=== PATIENT | male | born 1995 | race Caucasian/White ===

== ENCOUNTER 2016-10-30 09:07 | Emergency (ER) | payer BC ==
[~2016-10-30] VITALS: Ht 188 cm; Wt 83.9 kg
[2016-10-30 09:10] VITALS: TEMP 36.7; Ht 188 cm; Wt 83.9 kg
[2016-10-30 09:17] VITALS: O2SAT 95
--- NOTE | 2016-10-30 09:45 | EMERGENCY ROOM VISIT NOTE ---
History Report prepared by Levi: Saniya Vickers Under the Supervision of: Dr. Petros Brown M.D. First contact with patient: 09:33 Chief Complaint: CARDIAC ASSESSMENT Stated Complaint: HEART ATTACK, SOB, ANXIETY History of Present Illness The patient is a 21 year old male who presents to the Emergency Room for a cardiac assessment. The patient states, "I'm pretty sure that I experienced a heart attack this morning." He woke up at 7am and was feeling fine. He ate a piece of pizza and fell back to sleep with his computer on his chest. He woke up again at 8am with chest pain and shortness of breath. He states that his chest was very hot from his computer. He tried to check his pulse at his carotid , and states that he did not have a pulse. The patient ran outside to catch his breath. He states that on the drive to the ER his heart was racing. He describes his current pain as a pressure and tightness in his chest. He rates his discomfort as a 3/10 in severity. He has never experienced symptoms like this before. The patient denies back pain, abdominal pain, and extremity pain. He does not have any history of anxiety or panic attacks. Source of History: patient Onset: 1.5 hours [employer] Position: chest (cardiac) Symptom Intensity: 3/10 Quality: pressure, other (tightness) Timing: constant Associated Symptoms: + SOB, No abdominal pain, No back pain Note: Pt denies extremity pain. Review of Systems All systems have been listed, reviewed, and are negative other than those previously mentioned. Please see Additional Medical History Sheet. Past Medical & Surgical Medical Problems: (1) No significant active problems Family History Diabetes mellitus Heart disease Hypertension Social History Smoking Status: Unknown if Ever Smoked Alcohol Use: occasionally Marital Status: single Housing Status: lives with family Occupation Status: unemployed Current/Historical Medications Scheduled Amphetamine-Dextroamphetamine 20MG (Adderall Xr 20MG), 20 MG PO QAM Allergies Coded Allergies: No Known Allergies (Unverified , 10/30/16) Physical Exam Vital Signs Date Time Temp Pulse Resp B/P Pulse Ox O2 Delivery O2 Flow Rate FiO2 10/30/16 11:53 71 18 120/83 97 10/30/16 11:12 70 18 126/76 98 Room Air 10/30/16 09:39 100 Room Air 10/30/16 09:25 90 10/30/16 09:17 95 Room Air 10/30/16 09:10 36.7 104 20 133/75 100 Room Air Physical Exam GENERAL: Patient awake, alert, oriented x 3. Patient follows commands. Patient does not appear toxic. Patient is adequately hydrated and well- nourished. SKIN: No erythema, pallor, cyanosis or rash HEENT: Normal head, pupils equal, reactive to light and accommodation. Oral cavity and posterior pharynx appear normal. Neck: Without adenopathy, no neck vein distention. LUNGS: Clear to auscultation. No wheezes, no rales, no rhonchi. HEART: No murmurs. No gallops. No rubs ABDOMEN: No masses, no rebound, no hepatomegaly or splenomegaly. EXTREMITIES: No signs of trauma. No pedal or pretibial edema. No calf or thigh tenderness. NEUROLOGIC: Cranial nerves II-XII within normal limits. No gross motor sensory function deficits. PSYCHIATRIC: Patient is awake alert oriented and somewhat anxious. Medical Decision & Procedures ER Provider Diagnostic Interpretation: Radiology results as stated below per my review and radiologist interpretation: CHEST 2 VIEWS ROUTINE CLINICAL HISTORY: chest pain dyspnea COMPARISON STUDY: No previous studies for comparison. FINDINGS: The bones soft tissues and hemidiaphragms are normal. The cardiomediastinal silhouette is normal. The lungs are clear. The pulmonary vasculature is normal. IMPRESSION: Negative chest. Electronically signed by: Jayjay River M.D. 10/30/2016 10:19 AM Dictated Date/Time: 10/30/2016 10:19 AM Laboratory Results 10/30/16 10:00 10/30/16 10:00 Test 10/30/16 10:00 Red Blood Count 4.83 M/uL (4.7-6.1) Mean Corpuscular Volume 89.4 fL (80-100) Mean Corpuscular Hemoglobin 31.1 pg (25-34) Mean Corpuscular Hemoglobin Concent 34.7 g/dl (32-36) RDW Standard Deviation 39.9 fL (36.4-46.3) RDW Coefficient of Variation 12.2 % (11.5-14.5) Mean Platelet Volume 8.6 fL (7.4-10.4) Anion Gap 6.0 mmol/L (3-11) Est Creatinine Clear Calc Drug Dose 112.3 ml/min Estimated GFR () 98.9 Estimated GFR (Non- 85.3 BUN/Creatinine Ratio 14.4 (10-20) Calcium Level 8.8 mg/dl (8.5-10.1) Troponin I < 0.015 ng/ml (0-0.045) Laboratory results as stated above per my review. ECG Indication: chest pain Rate (beats per minute): 86 Rhythm: sinus with SA Findings: no acute ischemic change, no ectopy, other (normal axis) ED Course 0934: Past medical records reviewed. The patient was evaluated in room B12B. A complete history and physical examination was performed. Patient declined any medication at this time. 1124: I reassessed the patient at this time. He is feeling better and resting comfortably. I discussed the results and treatment plan with the patient. I answered all pertaining questions that he had. He expressed understanding and verbalized agreement. The patient will be discharged home. Medical Decision I considered multiple diagnoses including myocardial infarction, chest wall pain , pericarditis, myocarditis, aortic emergencies, pulmonary embolism, congestive heart failure, GI causes, anxiety, hyperventilation, panic attack, and other significant cardiopulmonary disorders. Multiple labs, EKG and imaging were obtained. Please see above. The patient remained asymptomatic while here in the ED. The patient kerr a s no evidence of an acute cardiopulmonary event. I do not believe the patient had any kind of heart attack. I do think he had a panic attack. He was reassured. He was offered an anxiolytic but declined. I believe the patient is safe to return home. He was encouraged to call his parents to reassure them also. Impression Primary Impression: Panic attack Scribe Attestation The scribe's documentation has been prepared under my direction and personally reviewed by me in its entirety. I confirm that the note above accurately reflects all work, treatment, procedures, and medical decision making performed by me. Departure Information Dispostion Home / Self-Care Referrals No Doctor, Assigned (PCP) Forms IMPORTANT VISIT INFORMATION Patient Instructions ED Panic Attack, My [facility] Additional Instructions Return here if you have more chest pain or shortness of breath.
[2016-10-30] MEDS ORDERED: AMPH20CA3 PO (10:04)
[2016-10-30 10:10] LABS: HEMATOCRIT 43.2 % (42-52); MEAN CELL VOLUME 89.4 fL (80-100); MEAN CORPUSCULAR HEMOGLOBIN 31.1 pg (25-34); MEAN CORPUSCULAR HGB CONC 34.7 g/dl (32-36); MEAN PLATELET VOLUME 8.6 fL (7.4-10.4); PLATELET COUNT 300 K/uL (130-400); RED BLOOD COUNT 4.83 M/uL (4.7-6.1); WHITE BLOOD COUNT 6.97 K/uL (4.8-10.8)
--- NOTE | 2016-10-30 10:20 | DIAGNOSTIC IMAGING REPORT ---
CHEST 2 VIEWS ROUTINE CLINICAL HISTORY: chest pain dyspnea COMPARISON STUDY: No previous studies for comparison. FINDINGS: The bones soft tissues and hemidiaphragms are normal. The cardiomediastinal silhouette is normal. The lungs are clear. The pulmonary vasculature is normal. IMPRESSION: Negative chest. Electronically signed by: Jayjay River M.D. 10/30/2016 10:19 AM Dictated Date/Time: 10/30/2016 10:19 AM
[2016-10-30 10:25] LABS: BLOOD UREA NITROGEN 17 mg/dl (7-18); BUN/CREATININE RATIO 14.4 (10-20); CALCIUM 8.8 mg/dl (8.5-10.1); CARBON DIOXIDE 30 mmol/L (21-32); CHLORIDE 106 mmol/L (98-107); GLUCOSE 91 mg/dl (70-99); POTASSIUM 4.3 mmol/L (3.5-5.1); SODIUM 142 mmol/L (136-145)
[2016-10-30 11:53] VITALS: BP 120/83; PULSE 71; O2SAT 97
== END 2016-10-30 11:54 | disposition home or self-care (01) ==
LOC: C.EDB 09:08
DX: F41.0 Panic disorder [episodic paroxysmal anxiety] (principal); Z83.3 Family history of diabetes mellitus; Z82.49 Family history of ischemic heart disease and other diseases of the circulatory system; Z79.899 Other long term (current) drug therapy